=== PATIENT | female | born 1955 | race Hispanic/Latino ===

== ENCOUNTER 2016-11-27 10:39 | Emergency (ER) | payer OTHER ==
[~2016-11-27 10:39] MED LIST: FLEXERIL10 MG PO; LEVOTHYROXINE0.1 M1 PO; PERCOCET 325 MG1 TA2 PO
[2016-11-27 10:44] VITALS: BP 127/88
[2016-11-27] MEDS ORDERED: ALPRAZOLAM0.25 M1 PO (11:05)
[2016-11-27] MEDS ORDERED: CYCLOBENZAPRINE10 M1 (11:05)
--- NOTE | 2016-11-27 11:06 | ED UPPER/LOWER EXTREMITY COMPL ---
History of Present Illness General Chief Complaint: General Adult Stated Complaint: ? LFT HAND INFECTION Source: patient Exam Limitations: no limitations Vital Signs & Intake/Output Vital Signs & Intake/Output Vital Signs Date Time Temp Pulse Resp B/P B/P Pulse O2 O2 Flow FiO2 Mean Ox Delivery Rate 11/27 1133 Room Air 11/27 1044 97.4 80 18 127/88 96 Room Air Allergies Coded Allergies: NO KNOWN ALLERGIES (05/10/13) Reconcile Medications Alprazolam 0.25 MG TABLET 1 TAB PO DAILY NEEDED ANXIETY (Reported) Cephalexin (Keflex) 500 MG CAPSULE 1 CAP PO BID CELLULITIS Cyclobenzaprine HCl 10 MG TABLET NECK PAIN (Reported) CYCLOBENZAPRINE HCL (Flexeril) 10 MG TAB 1 TAB PO TID PAIN Avoid operating motor vehicle or heavy machinery Levothyroxine Sodium 0.1 MG TAB 1 TAB PO DAILY AC THYROID (Reported) OXYCODONE HCL/ACETAMINOPHEN (Percocet 5-325 MG Tablet) 325 MG/5 MG TAB 1-2 TAB PO Q4-6 PRN PRN PAIN Triage Note: PT TO ED FOR CHECK OF HER LEFT HAND INCISION. STATES SHE HAD SUTURES REMOVED [address] BELL OFFICE AND HAS STERI BANDAGE IN PLACE, STATES THAT IT STARTED TO LIFT OFF AND WOUND APPEARS TO BE OPENED A BIT. PT APPEARS ANXIOUS IN TRIAGE. Triage Nurses Notes Reviewed? yes Onset: Gradual Duration: constant Timing: recent history Severity: mild Severity Numbers: 2 HPI: Patient is a 61-year-old female who presents emergency room stating that [address] Cox had performed a procedure in which patient states that she had "trigger finger" where it is most likely the patient had a Dupuytren's contracture release in which patient had an incision with sutures in which this was removed on November 25, 3 days ago with patient has Steri-Strips that are falling off her patient is concerned of a wound infection. Patient denies any fever chills swelling discharge or worsening pain however patient is concerned with the white skin color around the edges of the margins and the mildly open wound Past History Travel History Traveled to [place] past 21 day No Medical History Any Pertinent Medical History? none Surgical History Surgical History: dUPUYTREN'S CONTRACTURE RELEASE Psychosocial History What is your primary language Bruneian Tobacco Use: Current Daily Use Daily Tobacco Use Amount/Type: => 5 Cigarettes daily Family History Hx Contributory? No Review of Systems Review of Systems Constitutional: Reports: no symptoms. EENTM: Reports: no symptoms. Respiratory: Reports: no symptoms. Cardiovascular: Reports: no symptoms. Gastrointestinal/Abdominal: Reports: no symptoms. Genitourinary: Reports: no symptoms. Musculoskeletal: Reports: no symptoms. Skin: Reports: see HPI. Neurological/Psychological: Reports: no symptoms. Hematologic/Endocrine: Reports: no symptoms. Immunological: Reports: no symptoms. All Other Systems: Reviewed and Negative Physical Exam Physical Exam General Appearance: no apparent distress, alert, comfortable Neurologic/Tendon: normal sensation, normal motor functions, normal tendon functions, responds to pain, no evidence tendon injury, no pulse deficit Skin: normal color, warm/dry Comments: Well-developed well-nourished no apparent distress. HEENT: Atraumatic, extraocular motion intact Neck: Supple, no lymphadenopathy Back: Nontender Respiratory: No respiratory distress Extremities: No edema, full range of motion Neuro: Alert and oriented x3 Psych: Mood affect normal, normal memory normal judgment. Diagram Hands Front 1) Noted 2 cm well-healing incision with peripheral margins noted to be white however subcutaneous layer of skin noted to be intact Mild surrounding swelling with no erythema no discharge no warmth mild tenderness noted dermatomes intact no active discharge Progress Differential Diagnosis: arterial insufficiency, compartment syndrome, contusion, dislocation, DVT, fracture, gout, septic arthritis, sprain, tendon injury Plan of Care: On initial examination patient does not complain of any systemic signs of infection and denies any active discharge however was concerned of of the peripheral edge of the incision site to be white in color MOST LIKELY nonadherent skin however no signs of infection patient's symptoms are most likely inflammation rather than infection. I re-applied Steri-Strips with benzoin adherence on each side of the margins Patient will be treated with prophylactic antibiotics over again my suspicion of current infection is extremely low. Patient was strongly advised to return to emergency room if symptoms worsen and to follow-up with orthopedic doctor Departure Departure Disposition: HOME OR SELF CARE Condition: Stable Clinical Impression Primary Impression: Visit for wound check Secondary Impressions: Dupuytren contracture, Wound dehiscence Referrals: PHILIP SCHWAB MD (PCP/Family) Additional Instructions: As discussed the Steri-Strips that had been applied to the emergency room, leave this on at all times, THEY WILL follow off in approximately 4 days. If you note signs of infection redness, pain, swelling, discharge return to emergency room. Begin the prescription Keflex for infection prevention. Prescriptions waiting at [facility]. Follow-up with your scheduled orthopedic appointment with Dr. Cox Departure Forms: Customer Survey General Discharge Information Prescriptions: Current Visit Scripts Cephalexin (Keflex) 1 CAP PO BID #[id number] CAP
[2016-11-27] MEDS ORDERED: KEFLEX500 M1 PO (11:12)
== END 2016-11-27 11:34 ==
LOC: ERH 10:39
DX: T81.31XA Disruption of external operation (surgical) wound, not elsewhere classified, initial encounter (principal); M72.0 Palmar fascial fibromatosis [Dupuytren]

== ENCOUNTER 2017-01-05 04:12 | Inpatient (IN) | payer OTHER ==
[~2017-01-05] VITALS: Ht 147.3 cm; Wt 61.2 kg
[~2017-01-05 04:12] MED LIST changes: +ALPRAZOLAM0.25 M1 PO; +CYCLOBENZAPRINE10 M1; +KEFLEX500 M1 PO; -LEVOTHYROXINE0.1 M1 PO; +LEVOTHYROXINE50 MCG PO
--- NOTE | 2017-01-05 23:16 | Admission Core Measures ---
Admission Meds I reviewed the following Meds: Current Medications Sig/David Start time Last Medication Dose Stop Time Status Admin Alprazolam 0.25 MG TID PRN 01/05 2145 AC (Xanax) 01/12 2159 Cyclobenzaprine HCl 10 MG TID PRN 01/05 2145 AC (Flexeril 10MG Tab) Levothyroxine Sodium 0.05 MG DAILY AC 01/06 07 AC (Synthroid) Acute Coronary Syndrome Inclusion Criteria ACS Diagnosis No Inpatient Core Measures LDL Reminder: If No, please order W/I first 24hr of stay Congestive Heart Failure Inclusion Criteria CHF Diagnosis No Cerebrovascular accident Inclusion Criteria CVA/TIA Diagnosis No Inpatient Core Measures Bedside Swallow Eval Reminder: If BSE failed, place ST order Antithrombotic Reminder: Order Antithrombotic Medication by end of day 2 Antithrombotic Reminder: Document Reason Antithrombotic Not ordered by end of day 2 AFIB/Flutter Reminder: If Present, add to problem list AFIB/Flutter Reminder: Order Anticoag Medication for pts with AFIB/Flutter Atherosclerosis Reminder: If Present, add to problem list LDL Reminder: If No, please order W/I first 24hr of stay PT Order Reminder: If No, please order Venous thromboembolism Inpatient Core Measures VTE Risk Factors: Age > 40, Surgery No [facility] VTE prophylaxis d/t No contraindications No VTE Pharm Prophylaxis d/t No contraindications Inclusion Criteria - Per Current guidelines, there needs to be overlap - treatment for the first 5 days of Warfarin therapy. - Parenteral Anticoagulation (IV or SC) needs to be - given along with Warfarin therapy. VTE Diagnosis No VTE Type NONE VTE Confirmed by (Test) NONE Problem List As ranked by this Provider includes Assessment & Plan 1. Goiter 2. Hypothyroid HOME MEDS Home Med List Alprazolam 0.25 MG TABLET 1 TAB PO DAILY NEEDED ANXIETY (Reported) Levothyroxine Sodium 50 MCG TABLET 1 TAB PO DAILY HYPOTHYROID (Reported)
--- NOTE | 2017-01-05 23:21 | PN- General Surgery ---
Subjective Subjective: Patient seen postoperatively. She is comfortable. Her voice is a little hoarse , she has no other complaints. Objective Vital Signs and I&Os Vital signs stable. Afebrile. Physical Exam: Well-developed well-nourished no apparent distress. HEENT: Atraumatic, extraocular motion intact Neck: Supple, no lymphadenopathy. Trachea midline. Minimal swelling. NANCY with small amount of bloody drainage. Dressing clean dry and intact. No airway compromise noted. Respiratory: No respiratory distress, no stridor Extremities: No edema, no calf pain Neuro: Alert and oriented x3 cranial nerves II through XII grossly intact, Psych: Mood affect normal, normal memory normal judgment. Skin: Warm and dry, no rash on exposed skin Assessment/Plan Assessment/Plan Postop day 0 status post total thyroidectomy Serial calcium and albumin every 8 hours 3 NANCY drain to self suction Perioperative antibiotics, Ancef 2 more doses Nothing by mouth for now, start clears in the morning Tracheotomy and suture removal kit to bedside IV fluids Pain medication as needed Possible endocrine consult tomorrow Heparin for DVT prophylaxis along with ALPS OOB ad alejandrina Core Measures/Miscellaneous Venous Thromboembolism VTE Risk Factors: Age > 40, Surgery VTE Contraindications: No Contraindications VTE Diagnosis: No VTE Type: NONE VTE Confirmed by (Test): NONE Beta Bettie Is Beta Bettie a Home Med? No Antibiotics Is Patient on Antibiotics? Yes If Yes: prophylaxis
[2017-01-06 05:40] VITALS: BP 136/76
[2017-01-06 08:12] LABS: ABSOLUTE BASOPHIL COUNT 0 /CUMM (0.0-0.2); ABSOLUTE EOSINOPHIL COUNT 0 /CUMM (0.0-0.7); ABSOLUTE GRANULOCYTE CT 14.3 /CUMM (1.4-6.5); ABSOLUTE LYMPH COUNT 1.6 /CUMM (1.2-3.4); ABSOLUTE MONOCYTE COUNT 0.7 /CUMM (0.10-0.60); BASOPHIL % 0 % (0.0-2.0); EOSINOPHIL % 0 % (0-5); MEAN CORPUSCULAR HGB 27.9 PG (27.0-31.0); MEAN CORPUSCULAR HGB CONC 33.2 G/DL (33.0-37.0); MEAN CORPUSCULAR VOLUME 84.2 FL (81.0-99.0); RBC DISTRIBUTION WIDTH 14.3 % (11.5-14.5); RED BLOOD CELL CT 3.74 /CUMM (4.20-5.40); WHITE BLOOD CELL COUNT 16.5 /CUMM (4.8-10.8)
[2017-01-06 09:12] LABS: GRANULOCYTE % 86.2 % (42.2-75.2); HEMATOCRIT 31.5 % (37-47); PLATELET COUNT 241 /CUMM (130-400)
--- NOTE | 2017-01-06 10:41 | Patient Discharge Instructions ---
Discharge Instructions General Discharge Information You were seen/treated for: THYROID GOITER / MASS You had these procedures: TOTA THYROIDECTOMY (01/05/17) Watch for these problems: FEVER>101.3, INCREASED PAIN, REDNESS/SWELLING/DRAINAGE, SHORTNESS OF BREATH, HOARSENESS/VOCAL ALTERATION No bath, but you may shower: Yes Other wound care: KEEP INCISION CLEAN & DRY. STERI STRIPS WILL FALL OFF. Diet Continue normal diet: Yes Recommended Diet: Regular Activity Full Activity/No Limits: Yes Activity Self Limited: Yes Acute Coronary Syndrome Inclusion Criteria At DC or during hospital stay patient has or had the following: ACS DIAGNOSIS No Discharge Core Measures Meds if any: Prescribed or Continued at Discharge Meds if any: NOT Prescribed or Continued at Discharge Congestive Heart Failure Inclusion Criteria At DC or during hospital stay patient has or had the following: CHF DIAGNOSIS No Discharge Core Measures Meds if any: Prescribed or Continued at Discharge Meds if any: NOT Prescribed or Continued at Discharge Cerebrovascular accident Inclusion Criteria At DC or during hospital stay patient has or had the following: CVA/TIA Diagnosis No Discharge Core Measures Meds if any: Prescribed or Continued at Discharge Meds if any: NOT Prescribed or Continued at Discharge Venous thromboembolism Inclusion Criteria VTE Diagnosis No VTE Type NONE VTE Confirmed by (Test) NONE Discharge Core Measures - Per Current guidelines, there needs to be overlap - treatment for the first 5 days of Warfarin therapy. - If discharged on Warfarin prior to 5 days of - overlap therapy, the patient will need to be - assessed for post discharge needs including - *Post discharge parental anticoagulation - *Warfarin and/or parental anticoagulation education - *Follow up date to check INR post discharge At least 5 days overlap therapy as Inpatient No Meds if any: Prescribed or Continued at Discharge Note: Overlap Therapy is Warfarin and Anticoagulant Meds if any: NOT Prescribed or Continued at Discharge
--- NOTE | 2017-01-06 12:29 | Cons- Endocrinology ---
General Information and HPI Consulting Request Date of Consult: 01/06/17 Requested By: surgical team Reason for Consult: Possible hypocalcemia postoperative Source of Information: patient, old records Exam Limitations: no limitations History of Present Illness: This 61-year-old woman has a known history of multinodular goiter. It was first diagnosed in 1990. The patient underwent surgery at the [facility] in the consisting of a right lobectomy. The patient was referred to the office this year because of of a very enlarged left lobe of the thyroid. U of her studies revealed that the left lobe had enlarged considerably over the past few years. She did have a biopsy done to [facility] in 2016 of the left lobe heterogeneous nodule and the biopsy was benign. Because of pressure sensation in her neck and difficulty swallowing it was recommended to the patient that she consider surgery to remove the right lobe of the thyroid. Studies prior to surgery showed a mass which was quite enlarged at 5.7 x 5.2 x 8.9 cm and the left lower neck which displaced the trachea to the right. The trachea however was patent. The mass extended into the left superior mediastinum and into the suprasternal notch. There was no cervical adenopathy. The patient also has a history of hypothyroidism and was on levothyroxine 50 g daily prior to the surgery. The patient underwent a left lobectomy by Oz Reyes MD yesterday. This morning she is doing quite well. She is beginning to take her clear liquid diet well. She denies any numbness or tingling of her fingers and toes. A serum calcium was done last night and the blood calcium was 8.3 with an albumin of 3.2. Serum calcium this morning is 8.1 with an albumin of 3.3. Corrected calcium is 8.7. Allergies/Medications Allergies: Coded Allergies: NO KNOWN ALLERGIES (05/10/13) Home Med List: Alprazolam 0.25 MG TABLET 1 TAB PO DAILY NEEDED ANXIETY (Reported) Cyclobenzaprine HCl 10 MG TABLET NECK PAIN (Reported) Levothyroxine Sodium 50 MCG TABLET 1 TAB PO DAILY HYPOTHYROID (Reported) Review of Systems Review of Systems Constitutional: Denies: chills, fever. Cardiovascular: Denies: chest pain. Respiratory: Denies: short of breath. GI: Denies: nausea, vomiting. Genitourinary: Denies: dysuria. Musculoskeletal: Reports: neck pain (mild). Neurological/Psychological: Denies: anxiety. Past History Surgical History Surgical History: dUPUYTREN'S CONTRACTURE RELEASE Psychosocial History Smoking Status: Current Everyday Smoker Exam & Diagnostic Data Last 24 Hrs of Vital Signs/I&O Vital Signs Date Time Temp Pulse Resp B/P B/P Pulse O2 O2 Flow FiO2 Mean Ox Delivery Rate 01/06 0953 Room Air Room Air Vital Signs Date Time Temp Pulse Resp B/P B/P Pulse O2 O2 Flow FiO2 Mean Ox Delivery Rate 01/06 0953 Room Air Room Air Physical Exam General Appearance: alert, awake, comfortable Head: normal appearance Eyes: Bilateral: normal appearance. Neck: Thyroidectomy scar Respiratory: normal breath sounds Cardiovascular: regular rate/rhythm Gastrointestinal: normal bowel sounds Extremities: normal inspection Labs/Ramy Results: Laboratory Tests 01/050 Chemistry Calcium (8.4 - 10.2 mg/dL) 8.3 L Albumin (3.5 - 5.0 g/dL) 3.2 L Assessment/Plan Assessment/Plan The patient is doing well postoperatively. I would resume levothyroxine 50 g daily. We will check her thyroid labs in one month and adjust her thyroid at that time. With regard to her calcium her corrected calcium is normal. We will await the next calcium. However it is probably reasonable to give her calcium carbonate 600 mg twice a day, and vitamin D3 1000 units once a day to start today, Her calcium pills should be out from her thyroid pills by at least 4 hours. Consult Acknowledgment - Thank you for your consult request.
[2017-01-06] MEDS ORDERED: PERCOCET 5-3251 EACH PO (16:48)
[2017-01-06] MEDS ORDERED: CALCIUM CARBON500 M2 PO (16:48)
[2017-01-06] MEDS ORDERED: VITAMIN D31000 UNI2 PO (16:48)
--- NOTE | 2017-01-08 20:31 | Operative Report ---
Operative/Inv Procedure Report Surgery Date: 01/05/17 Name of Procedure: Completion total thyroidectomy, enlarged left lobe Pre-Operative Diagnosis: Goiter with pressure symptoms status post partial removal of thyroid Post-Operative Diagnosis: Same Estimated Blood Loss: 300 mL Surgeon/Bag Sewer: MICHEAL ROSARIO,MY Concepcion and AGA Roland Anesthesia: general endotracheal tube Operative/Procedure Note Note: Patient was placed on the OR table supine, over the thyroid bar, after successful induction of general anesthesia and the timeouts, and setting up the NIMS electrodes for monitoring, the patient's neck from chin to chest were clipped prepped and draped in the usual sterile fashion. We were going to reopen the previous incision, a low collar one and then infiltrated local anesthetic and then made this incision with a 15 blade, extending past the sternocleidomastoid muscle on the left because of the size of the gland. The incision was deepened through the subcutaneous fat and subplatysmal flaps, there was some scarring here and only one obvious anterior jugular vein, these flaps were extended superiorly to the thyroid cartilage and inferiorly not quite to the sternal notch. The midline was identified between the strap muscles and opened vertically and then using an Allis clamp first, the sternohyoid which we divided on the left with the harmonic scalpel horizontally, and the underlying sternothyroid muscle was fused there was no midline marked so we developed one and also divided it, this also was because of the size of the gland. And then the sternal thyroid muscles were retracted laterally to the left off the thyroid towards the carotid sheath. At that deep lateral extent we proceeded superiorly to mobilize the upper pole, all with the Harmonic scalpel, care was taken to disconnect the entire tip of the upper pole requiring dissection both medial and lateral, the medial window was important to preserve the motor branch of the superior laryngeal nerve which was actually very visible in this case, also posteriorly, care was taken to preserve both the blood supply and the superior parathyroid gland as it was swept off the posterior capsule. Once the branches of the superior thyroid vessels were divided, the upper pole was mobilized and brought down and out into the incision. Of note overall the vessels to the upper pole especially the veins were quite dilated and engorged and as we divided them the gland became more distended and also the way that the gland enlarged the upper pole sort of folded onto itself along those vessels and there was significant back bleeding that we had to oversew and use even the LigaSure impact to control there was no significant bleeding from the patient's side as the vessels remained controlled on that end. We then mobilized laterally at the middle of the lobe and then inferiorly around the inferior pole and back here there was the inferior parathyroid gland which was also preserved. Despite the appearance of the lower pole below the clavicle it did lift up out of there without significant bleeding, compared to the upper pole. Then we turned our dissection directly over the trachea, which was way lateral right, and the enlarged left lobe which reached over to the right was carefully divided off the trachea paying care to avoid injury left lateral where the recurrent laryngeal nerve was. Then we got a better sense of Laguerre's ligament which we left for last, where branches of the inferior thyroid vessels and the recurrent laryngeal nerve come close. We were able to get the dissection just inside the capsule and disconnected the lobe completely from the lateral aspect of the trachea without getting too close to the nerve. This nerve was identified and preserved. Next we checked for hemostasis no sutures or Surgicel were needed, we placed a 10 Bengali round Garland-Chew drain into the area through a separate stab incision, secured to the skin with a nylon suture, and then closed by first reapproximating the aforementioned divided strap muscles over the trachea in the middle paying care not to injure those jugular veins on either side, and then the platysma was reapproximated with a running 3-0 Vicryl suture as well, then the skin was reapproximated with a running subcuticular 4-0 Biosyn suture followed by Mastisol Steri-Strips Telfa and Tegaderm. Estimated blood loss was approximately 300 ML, lap and sponge counts were correct wound expectancy was clean, IV fluids crystalloid, complications none, patient tolerated the procedure well was awakened extubated and returned to the recovery room in satisfactory condition where once more awake, was able to phonate without any significant hoarseness.
== END 2017-01-06 19:00 | DRG 404 ==
LOC: STS 04:12 → EDSTATUS 07:00 → STS 07:00 → 1NO 14:44 → STS 14:44 → 1NO 14:44 → ENPENDDIS 01-06 17:20 → 1NO 01-06 19:00
PROVIDERS: Physician Assistant Surgical; ADMIT Surgery
PROC: 0GTG0ZZ Resection of Left Thyroid Gland Lobe, Open Approach (ICD-10-PCS; principal; 2017-01-05)
DX: E04.2 Nontoxic multinodular goiter (principal); E03.9 Hypothyroidism, unspecified; E55.9 Vitamin D deficiency, unspecified; F17.210 Nicotine dependence, cigarettes, uncomplicated; M81.0 Age-related osteoporosis without current pathological fracture; F41.9 Anxiety disorder, unspecified; M19.90 Unspecified osteoarthritis, unspecified site
CPT/HCPCS: 1NP; 36415; 82436; 87086; C9399; J0131; J0690; J1644; J1885; J2250; J2405; J2550; J7042